=== PATIENT | male | born 1925 | race Caucasian/White ===

== ENCOUNTER 2017-02-15 09:40 | Emergency (ER) | payer MEDICARE ==
[~2017-02-15] VITALS: Ht 172.7 cm; Wt 77.1 kg
[2017-02-15] MEDS ORDERED: DONE10TA44 PO (10:14)
[2017-02-15] MEDS ORDERED: ALLO100T56 PO (10:14)
[2017-02-15] MEDS ORDERED: [UNRECOGNIZED DRUG - OTHER] PO (10:14)
[2017-02-15] MEDS ORDERED: ATOR20TA PO (10:14)
[2017-02-15] MEDS ORDERED: DESV50TA PO (10:14)
[2017-02-15] MEDS ORDERED: MEMA10TA PO (10:14)
[2017-02-15] MEDS ORDERED: ASPI81TA31 PO (10:14)
[2017-02-15] MEDS ORDERED: GLIPIZIDE (10:14)
[2017-02-15] MEDS ORDERED: [UNRECOGNIZED DRUG - OTHER] PO (10:14)
[2017-02-15] MEDS ORDERED: OLME20TA15 PO (10:15)
--- NOTE | 2017-02-15 11:46 | NUR ---
PT WAS EVALUATED BY DR PARDO. PT WAS D/C TO HOME. D/C INSTRUCTIONS GIVEN TO THE PT AND HIS FAMILY.
[2017-02-15 11:48] VITALS: BP 141/79
== END 2017-02-15 11:49 | disposition home or self-care (01) ==
LOC: ER 09:40
DX: I73.9 Peripheral vascular disease, unspecified (principal); F03.90 Unspecified dementia, unspecified severity, without behavioral disturbance, psychotic disturbance, mood disturbance, and anxiety; E11.9 Type 2 diabetes mellitus without complications; Z79.82 Long term (current) use of aspirin; E78.5 Hyperlipidemia, unspecified
CPT/HCPCS: 93970; 99284; A4663